=== PATIENT | male | born 1995 | race Caucasian/White ===

== ENCOUNTER 2020-07-15 16:37 | Emergency (ER) | payer OTHER ==
[~2020-07-15] VITALS: Ht 175.3 cm; Wt 75.6 kg
[2020-07-15] MEDS ORDERED: IBUP-1022 PO (16:51)
[2020-07-15] MEDS ORDERED: NS 1,000 ML IV ONE (17:30)
[2020-07-15] MEDS ORDERED: VANCOMYCIN HCL 1,500 MG in IV FLUID PLACE HOLDER 1 EA IV ONE (17:30)
[2020-07-15] MEDS ORDERED: VANCOMYCIN HCL 750 MG, VIAL MATE ADAPTER 1 EACH in D5W 250 ML IV ONE ×2 (17:45→18:45)
[2020-07-15 18:03] LABS: BASO % 0.2 % (0.0-1.0); EOS # 0.1 10^3/uL (0.0-0.5); EOS % 0.6 % (0.0-3.0); HEMATOCRIT 44.5 % (42.0-52.0); HEMOGLOBIN 15.1 g/dl (13.5-17.5); LYMPH # 1.5 10^3/uL (1.5-5.0); MEAN CORPUSCULAR HGB CONC 33.9 g/dl (32.0-36.5); MEAN CORPUSCULAR VOLUME 88.3 fl (80.0-96.0); MONO # 1.1 10^3/uL (0.0-0.8); MONO % 8.4 % (0.0-5.0); NEUTROPHILS % 78.5 % (36.0-66.0); PLATELET COUNT, AUTOMATED 184 10^3/uL (150-450); RED BLOOD COUNT 5.04 10^6/uL (4.30-6.10); WHITE BLOOD COUNT 12.7 10^3/uL (4.0-10.0)
[2020-07-15 18:22] LABS: BLOOD UREA NITROGEN 15 MG/DL (7-18); C REACTIVE PROTEIN QUANTITATIV 5.93 MG/DL (0.00-0.30); CARBON DIOXIDE LEVEL 30 MEQ/L (21-32); CHLORIDE LEVEL 103 MEQ/L (98-107); CREATININE FOR GFR 1.11 MG/DL (0.70-1.30); GLOMERULAR FILTRATION RATE > 60.0 (>60); GLUCOSE, FASTING 96 MG/DL (70-100); POTASSIUM SERUM 3.8 MEQ/L (3.5-5.1); SODIUM LEVEL 138 MEQ/L (136-145)
[2020-07-15] MEDS ORDERED: ISOVUE-370 76% 100ML VIAL As Ordered ONE (18:34)
[2020-07-15 18:42] LABS: ERYTHROCYTE SEDIMENTATION RATE 7 mm/hr (0-15)
--- NOTE | 2020-07-15 19:00 | REPVR ---
PROCEDURE INFORMATION: Exam: CT Left Upper Extremity Without Contrast, Elbow Exam date and time: 07/15/2020 6:45 PM Age: 25 years old Clinical indication: Other: Cellulitis; Additional info: Cellulitis over elbow joint, attn elbow TECHNIQUE: Imaging protocol: CT of the Left upper extremity without contrast was performed. Exam focused on the elbow. Radiation optimization: All CT scans at this facility use at least one of these dose optimization techniques: automated exposure control; mA and/or kV adjustment per patient size (includes targeted exams where dose is matched to clinical indication); or iterative reconstruction. COMPARISON: No relevant prior studies available. FINDINGS: Bones/joints: Normal. No acute fracture or dislocation. Soft tissues: Diffuse inflammatory changes demonstrated in the subcutaneous fat of the posterior posterolateral elbow with a moderately well-defined peripherally enhancing centrally hypodense focus measuring 1.9 x 1.4 x 2.3 cm consistent with an abscess. Skin thickening demonstrated posteriorly may indicate cellulitis. IMPRESSION: 1. Subcutaneous inflammatory changes with a probable focal abscess as described above. 2. Skin thickening demonstrated posteriorly may indicate cellulitis. Electronically signed by: Donny Rodriguez On 07/15/2020 19:01:00 PM
[2020-07-15] MEDS ORDERED: LIDOCAINE W/EPINEPHRINE 1% 20ML VIAL SC ONE (20:30)
[2020-07-15] MEDS ORDERED: BACT800T5 PO (20:51)
[2020-07-15 21:58] VITALS: BP 140/88
--- NOTE | 2020-07-16 10:52 | ED PDOC ---
Post-Departure Follow-Up ct upper extremity faxed formal report to [facility]. Olga Lidia León MD Jul 16, 2020 10:52
== END 2020-07-15 22:12 | disposition home or self-care (01) ==
LOC: EEVIPCON 16:37 → M ED 16:37
DX: L02.414 Cutaneous abscess of left upper limb (principal); L03.114 Cellulitis of left upper limb
CPT/HCPCS: 10060; 73201; 80048; 83605; 85025; 85652; 86140; 87040; 87070; 87077; 87186; 96365; 96366; 96375; 99283; J3370; Q9967

== ENCOUNTER → 2024-11-22 | Outpatient (CLI) | payer OTHER ==
[~2024-11-22] MED LIST: BACT800T5 PO; IBUP-1022 PO
== END ==
LOC: M RAD 08:23
PROVIDERS: ATTEND Chiropractor
DX: M47.816 Spondylosis without myelopathy or radiculopathy, lumbar region (principal); R93.7 Abnormal findings on diagnostic imaging of other parts of musculoskeletal system

== ENCOUNTER 2025-03-14 12:04 | Emergency (ER) | payer OTHER ==
[~2025-03-14] VITALS: Ht 175.3 cm; Wt 84.3 kg
[2025-03-14] MEDS ORDERED: SERT-141 PO (12:09)
[2025-03-14] MEDS: KETOROLAC 60 MG/2 ML VIAL IM ONE (13:34)
[2025-03-14 16:56] VITALS: BP 127/82; TEMP 97.8; O2SAT 99
== END 2025-03-14 16:58 | disposition home or self-care (01) ==
LOC: M ED 12:04
DX: S29.012A Strain of muscle and tendon of back wall of thorax, initial encounter (principal); S39.012A Strain of muscle, fascia and tendon of lower back, initial encounter; Y92.9 Unspecified place or not applicable; Y93.9 Activity, unspecified; Y99.9 Unspecified external cause status; Z79.899 Other long term (current) drug therapy
CPT/HCPCS: 72128; 72131; 96372; 99283; J1885